=== PATIENT | female | born 1960 | race Caucasian/White ===

== ENCOUNTER 2016-07-12 13:15 | Inpatient (IN) | payer MEDICAID ==
[2016-07-11 20:31] VITALS: BP_SYST 109; RESP 18; TEMP 98.1; Ht 170.2 cm; Wt 73.6 kg
[~2016-07-12] VITALS: Ht 170.2 cm; Wt 73.6 kg
[2016-07-12] MEDS ORDERED: METHYLPRED SOD SUCC 125 MG/2 ML VIAL ONE (16:58)
[2016-07-12] MEDS ORDERED: DUONEB INH ONE ×2 (17:06)
[2016-07-12] MEDS ORDERED: NEB-ALBUTEROL 2.5 MG/3 ML INH PRN (18:55)
[2016-07-12] MEDS ORDERED: SALINE FLUSH 10 ML FLUSH PRN (18:55)
[2016-07-12] MEDS: DUONEB INH SCH (19:05)
[2016-07-12] MEDS: SALINE FLUSH 10 ML FLUSH SCH (20:43)
[2016-07-12] MEDS: DOXYCYCLINE 100 MG TAB PO SCH (20:43)
[2016-07-12] MEDS: ACETAMINOPHEN 325 MG TAB PO PRN (21:33)
[2016-07-12 23:09] VITALS: BP_SYST 104; RESP 18; TEMP 97.8
[2016-07-12] MEDS: METHYLPRED SOD SUCC 125 MG/2 ML VIAL IV SCH (23:20)
[2016-07-12] MEDS: NEB-BROVANA 15 MCG/2 ML INH SCH (23:21)
[2016-07-12] MEDS: NEB-BUDESONIDE 0.5 MG INH SCH (23:21)
[2016-07-12 23:22] VITALS: RESP 20
[2016-07-13 03:59] VITALS: BP_SYST 115; RESP 16; TEMP 98
[2016-07-13] MEDS: SODIUM CHLORIDE 0.9% FLUSH BAG 500 ML IV SCH (06:00)
[2016-07-13] MEDS: NEB-BROVANA 15 MCG/2 ML INH SCH ×2 (07:04→19:22)
[2016-07-13] MEDS: NEB-BUDESONIDE 0.5 MG INH SCH ×2 (07:04→19:22)
[2016-07-13] MEDS: DUONEB INH SCH ×4 (07:06→22:34)
[2016-07-13 07:58] VITALS: BP_SYST 124; RESP 22; TEMP 96.9
[2016-07-13] MEDS: MONTELUKAST 10 MG TAB PO SCH (08:31)
[2016-07-13] MEDS: METHYLPRED SOD SUCC 125 MG/2 ML VIAL IV SCH ×2 (08:31→17:17)
[2016-07-13] MEDS: ATENOLOL 50 MG TAB PO SCH (08:31)
[2016-07-13] MEDS: DOXYCYCLINE 100 MG TAB PO SCH ×2 (08:31→20:08)
[2016-07-13] MEDS: LORATADINE 10 MG TAB PO SCH (08:31)
[2016-07-13] MEDS: SALINE FLUSH 10 ML FLUSH SCH ×2 (08:32→20:08)
[2016-07-13] MEDS: ENOXAPARIN 40 MG/0.4 ML SYR SUBQ SCH (08:32)
[2016-07-13] MEDS: ACETAMINOPHEN 325 MG TAB PO PRN (10:05)
[2016-07-13 11:00] VITALS: BP_SYST 126; RESP 18; TEMP 97.3
[2016-07-13 15:45] VITALS: BP_SYST 126; RESP 18; TEMP 97.1
[2016-07-13 19:27] VITALS: BP_SYST 126; RESP 16; TEMP 97.1
[2016-07-13] MEDS: PANTOPRAZOLE 40 MG TAB PO SCH (22:50)
[2016-07-13 23:16] VITALS: BP_SYST 102; RESP 16; TEMP 96.8
[2016-07-14 03:56] VITALS: BP_SYST 128; RESP 16; TEMP 98.3
[2016-07-14] MEDS: SODIUM CHLORIDE 0.9% FLUSH BAG 500 ML IV SCH (06:00)
[2016-07-14] MEDS: PANTOPRAZOLE 40 MG TAB PO SCH (06:05)
[2016-07-14] MEDS: NEB-BUDESONIDE 0.5 MG INH SCH ×2 (06:56→19:08)
[2016-07-14] MEDS: NEB-XOPENEX 1.25 MG/3 ML INH SCH ×5 (06:56→22:53)
[2016-07-14] MEDS: NEB-BROVANA 15 MCG/2 ML INH SCH ×2 (06:56→19:08)
[2016-07-14 07:29] VITALS: BP_SYST 118; RESP 16; TEMP 96.8
[2016-07-14] MEDS: ATENOLOL 50 MG TAB PO SCH (09:33)
[2016-07-14] MEDS: Losartan 50 MG TAB PO SCH (09:33)
[2016-07-14] MEDS: SALINE FLUSH 10 ML FLUSH SCH ×2 (09:33→20:28)
[2016-07-14] MEDS: DOXYCYCLINE 100 MG TAB PO SCH ×2 (09:34→20:28)
[2016-07-14] MEDS: PREDNISONE 20 MG TAB PO SCH (09:34)
[2016-07-14] MEDS: LORATADINE 10 MG TAB PO SCH (09:34)
[2016-07-14] MEDS: MONTELUKAST 10 MG TAB PO SCH (09:34)
[2016-07-14] MEDS: ENOXAPARIN 40 MG/0.4 ML SYR SUBQ SCH (09:35)
[2016-07-14 10:27] VITALS: BP_SYST 114
[2016-07-14] MEDS: LABETALOL 100 MG/20 ML VIAL IV PUSH ONE (10:27)
[2016-07-14 11:42] VITALS: BP_SYST 112; RESP 18; TEMP 96.1
[2016-07-14] MEDS: ACETAMINOPHEN 325 MG TAB PO PRN (17:31)
[2016-07-14 19:38] VITALS: BP_SYST 108; RESP 18; TEMP 97.3
[2016-07-14 23:42] VITALS: BP_SYST 130; RESP 18; TEMP 97.2
[2016-07-15 01:30] VITALS: BP_SYST 130; RESP 20; TEMP 98.6
[2016-07-15 03:03] VITALS: BP_SYST 112; RESP 18; TEMP 98
[2016-07-15] MEDS: PANTOPRAZOLE 40 MG TAB PO SCH (05:55)
[2016-07-15] MEDS: SODIUM CHLORIDE 0.9% FLUSH BAG 500 ML IV SCH (05:56)
[2016-07-15] MEDS: NEB-BUDESONIDE 0.5 MG INH SCH (06:38)
[2016-07-15] MEDS: NEB-BROVANA 15 MCG/2 ML INH SCH (06:38)
[2016-07-15] MEDS: NEB-XOPENEX 1.25 MG/3 ML INH SCH ×3 (06:38→14:50)
[2016-07-15 07:44] VITALS: BP_SYST 119; RESP 18; TEMP 98.4
[2016-07-15] MEDS: ENOXAPARIN 40 MG/0.4 ML SYR SUBQ SCH (08:39)
[2016-07-15] MEDS: MONTELUKAST 10 MG TAB PO SCH (08:41)
[2016-07-15] MEDS: PREDNISONE 20 MG TAB PO SCH (08:41)
[2016-07-15] MEDS: LORATADINE 10 MG TAB PO SCH (08:41)
[2016-07-15] MEDS: ATENOLOL 50 MG TAB PO SCH (08:41)
[2016-07-15] MEDS: Losartan 50 MG TAB PO SCH (08:41)
[2016-07-15] MEDS: DOXYCYCLINE 100 MG TAB PO SCH (08:41)
[2016-07-15] MEDS: SALINE FLUSH 10 ML FLUSH SCH (08:42)
[2016-07-15 11:27] VITALS: BP_SYST 124; RESP 18; TEMP 96.8
[2016-07-15 15:37] VITALS: BP_SYST 124; RESP 18; TEMP 96.4
[2016-07-15 17:33] VITALS: BP_SYST 124; RESP 18; TEMP 96.4
== END 2016-07-15 18:02 | disposition home or self-care (01) | DRG 189 ==
LOC: ENRESERVTM → ENRESERVDT → ER 13:15 → EMR 18:52 → UNDOADMOB 18:52 → INTOOBSV 18:57 → OBSVTOIN 18:57 → EMR 19:53 → 4THE 19:53 → EMR 07-13 18:52 → UNDOADMOB 07-13 18:52 → INTOOBSV 07-13 18:57 → EMR 07-13 18:57 → 4THE 07-13 18:57 → UNDOADMOB 07-13 18:57 → OBSVTOIN 07-13 18:57 → ENPENDDIS 07-13 18:57 → 3S 07-15 01:17
PROVIDERS: ADMIT Family Medicine; ATTEND Family Medicine
CPT/HCPCS: 71020; 80053; 83735; 85007; 85025; 85027; 86403; 87088; 94640; 94799; 96372; 99232